=== PATIENT | female | born 1975 | race American Indian/Alaskan Native ===

== ENCOUNTER 2017-09-02 01:17 | Emergency (ER) | payer MEDICAID ==
[2017-09-02] MEDS ORDERED: PEPCID ONE (02:28)
[2017-09-02] MEDS ORDERED: BENADRYL PO ONE ×2 (02:28→02:33)
[2017-09-02] MEDS ORDERED: DECADRON ONE (02:28)
[2017-09-02] MEDS ORDERED: DECADRON IM ONE (02:33)
[2017-09-02] MEDS ORDERED: PEPCID PO ONE (02:33)
[2017-09-02 05:26] LABS: Hematocrit 43.5 % (30.3-42.9); Hemoglobin 14.7 gm/dl (10.1-14.3); Mean Corpuscular HGB Conc 34 % (30-34); Mean Corpuscular Hemoglobin 28 pg (28-32); Mean Corpuscular Volume 83 fl (79-97); Platelet Count 296 K/mm3 (140-440); Red Blood Count 5.22 M/mm3 (3.65-5.03); Red Cell Distribution Width 16.2 % (13.2-15.2); White Blood Count 4.7 K/mm3 (4.5-11.0)
[2017-09-02 05:36] LABS: Anion Gap 15 mmol/L; BUN/Creatinine Ratio 12; Blood Urea Nitrogen 7 mg/dL (7-17); Calcium 9.8 mg/dL (8.4-10.2); Carbon Dioxide 26 mmol/L (22-30); Glucose 89 mg/dL (65-100); Potassium 4.1 mmol/L (3.6-5.0); Sodium 138 mmol/L (137-145)
[2017-09-02 05:40] LABS: Alanine Aminotransferase 13 units/L (7-56); Albumin 4.2 g/dL (3.9-5); Albumin/Globulin Ratio 1.2 %; Alkaline Phosphatase 61 units/L (35-129); Total Protein 7.8 g/dL (6.3-8.2)
[2017-09-02 05:48] LABS: Bilirubin,Direct < 0.2 mg/dL (0-0.2)
[2017-09-02 06:22] LABS: Bilirubin,Urine NEG (Negative); Blood,Urine SM (Negative); Ketones,Urine NEG (Negative); Leukocyte Esterase,Urine NEG (Negative); Mucus,Urine 1+ /HPF; Nitrite,Urine NEG (Negative); Protein,Urine <15 mg/dL mg/dL (Negative)
--- NOTE | 2017-09-02 07:39 | Emergency Department Report ---
ED General Adult HPI - General Chief complaint: Allergic Reaction Stated complaint: ITCHING Source: patient Mode of arrival: Ambulatory Limitations: No Limitations - History of Present Illness Severity scale (0 -10): 0 - Related Data Home Medications Medication Instructions Recorded Confirmed Last Taken Rivaroxaban [Xarelto] 20 mg PO QDAY 08/18/14 01/04/15 08/18/14 Previous Rx's Medication Instructions Recorded Last Taken Type Ondansetron [Zofran Odt] 4 mg PO Q6H #14 tab.rapdis 01/05/15 Unknown Rx Sulfamethoxazole/Trimethoprim 1 each PO BID #14 tablet 01/05/15 Unknown Rx [Bactrim Ds] traMADol [Ultram] 50 mg PO Q6HR PRN #14 tablet 01/05/15 Unknown Rx Acetaminophen/Codeine [Tylenol #3] 1 tab PO Q6H PRN #16 tab 07/15/15 Unknown Rx Azithromycin [Zithromax Z-SUMAYA] 250 mg PO DAILY #6 tab 07/15/15 Unknown Rx Prednisone [predniSONE 10 mg 10 mg PO .TAPER #1 tab.ds.pk 07/15/15 Unknown Rx (6-Day Pack, 21 Tabs)] Allergies Allergy/AdvReac Type Severity Reaction Status Date / Time No Known Allergies Allergy Unverified 09/02/17 01:21 ED Review of Systems ROS: Stated complaint: ITCHING Other details as noted in HPI ED Past Medical Hx - Past Medical History Previous Medical History?: Yes Hx Deep Vein Thrombosis: Yes (2011,2013) - Surgical History Past Surgical History?: Yes Additional Surgical History: Tonsillectomy 2009 Ablasion 2016 Left leg surgery - Social History Smoking Status: Never Smoker Substance Use Type: Alcohol, Prescribed - Medications Home Medications: Home Medications Medication Instructions Recorded Confirmed Last Taken Type Rivaroxaban [Xarelto] 20 mg PO QDAY 08/18/14 01/04/15 08/18/14 History Ondansetron [Zofran Odt] 4 mg PO Q6H #14 tab.rapdis 01/05/15 Unknown Rx Sulfamethoxazole/Trimethoprim 1 each PO BID #14 tablet 01/05/15 Unknown Rx [Bactrim Ds] traMADol [Ultram] 50 mg PO Q6HR PRN #14 tablet 01/05/15 Unknown Rx Acetaminophen/Codeine [Tylenol #3] 1 tab PO Q6H PRN #16 tab 07/15/15 Unknown Rx Azithromycin [Zithromax Z-SUMAYA] 250 mg PO DAILY #6 tab 07/15/15 Unknown Rx Prednisone [predniSONE 10 mg 10 mg PO .TAPER #1 tab.ds.pk 07/15/15 Unknown Rx (6-Day Pack, 21 Tabs)] ED Physical Exam - General Limitations: No Limitations ED Course Vital Signs 09/02/17 09/02/17 01:21 02:21 Temperature 98.5 F 98.2 F Pulse Rate 74 74 Respiratory 18 18 Rate Blood Pressure 136/87 Blood Pressure 139/89 [Right] O2 Sat by Pulse 99 100 Oximetry ED Medical Decision Making - Lab Data Result diagrams: 09/02/17 05:03 09/02/17 05:03 Critical care attestation.: If time is entered above; I have spent that time in minutes in the direct care of this critically ill patient, excluding procedure time. ED Disposition Condition: Stable Referrals: MELVINA BOATENG MD [Primary Care Provider] - 3-5 Days
[2017-09-02 08:25] VITALS: BP 122/83
[2017-09-02] MEDS ORDERED: KENALOG TP SCH (10:00)
== END 2017-09-02 08:24 | disposition home or self-care (01) ==
LOC: ED 01:17
DX: T78.40XA Allergy, unspecified, initial encounter (principal); Y92.9 Unspecified place or not applicable
CPT/HCPCS: 36415; 80048; 80074; 81001; 84703; 85027; 87045; 96372; 99283; J1100

== ENCOUNTER 2017-09-06 08:41 | Outpatient (CLI) | payer MEDICAID ==
--- NOTE | 2017-09-06 14:38 | Cat Scan Report ---
CT SCAN OF THE ABDOMEN AND PELVIS WITH CONTRAST: HISTORY: Pelvic fluid. TECHNIQUE: Helical CT in 1.25mm intervals following IV contrast. Sagittal and coronal reconstructions. FINDINGS: The liver is normal in size and is without focal defect. No gallstones or biliary dilatation are noted. The spleen and pancreas demonstrate a normal size and attenuation with no evidence of abnormal mass. The kidneys are normal in size and position with no evidence of hydronephrosis or mass. The adrenal glands are normal. There is no intestinal obstruction or ascites. Normal appendix. The abdominal aorta is normal. 1.5 cm left ovarian cyst and trace pelvic fluid are noted. The uterus and right ovary are unremarkable. There is no evidence of peritoneal air or fluid. There is no evidence of any abnormal masses or fluid collections within the pelvis. No adenopathy is identified. The bladder is normal. IMPRESSION: 1.5 cm left ovary cyst. Trace pelvic fluid.
== END 2017-09-06 08:42 | disposition home or self-care (01) ==
LOC: CT 08:41
PROVIDERS: ATTEND Obstetrics & Gynecology
DX: N83.202 Unspecified ovarian cyst, left side (principal); R18.8 Other ascites; R31.9 Hematuria, unspecified
CPT/HCPCS: 74177; Q9967

== ENCOUNTER → 2018-01-12 | Outpatient (CLI) | payer MEDICAID | LOC: SLR 11:00 | PROVIDERS: ATTEND Otolaryngology | DX: G47.30 Sleep apnea, unspecified (principal) | CPT/HCPCS: G0399 ==